=== PATIENT | male | born 1990 | race African-American/Black ===

== ENCOUNTER 2020-05-25 18:48 | Emergency (ER) | payer SELFPAY ==
[2020-05-25 18:59] VITALS: TEMP 98.1; BMI 34.2
[2020-05-25 22:43] LABS: BASO % 0.5 % (0-2.0); EOS % 4.5 % (0-4.5); HEMATOCRIT 43.4 % (35.4-49); HEMOGLOBIN 14.3 GM/dL (11.7-16.9); LYMPH % 32.9 % (8-40); MCH 28.5 pg (25.7-33.7); MEAN CELL VOLUME 86.2 fl (80-96); MEAN PLT VOLUME 9.4 fl (7.5-11.1); MONO % 8.9 % (3.8-10.2); NEUT % 53.2 % (42.8-82.8); PLATELET COUNT 267 K/MM3 (134-434); RBC 5.03 M/mm3 (4.00-5.60); RDW 14.6 % (11.9-15.9); WHITE BLOOD COUNT 10.1 K/mm3 (4.0-10.0)
[2020-05-25 22:49] LABS: INR 1.02 (0.83-1.09); PROTHROMBIN TIME (PATIENT) 12.5 SEC (9.7-13.0)
[2020-05-25 22:52] LABS: ACTIVATED PTT 31.4 SECONDS (25.2-36.5)
[2020-05-25 23:02] LABS: CHLORIDE 109 mmol/L (98-107); POTASSIUM 4.2 mmol/L (3.5-5.1); SODIUM 141 mmol/L (136-145)
[2020-05-25 23:04] LABS: ANION GAP 7 MMOL/L (8-16); BLOOD UREA NITROGEN 12.8 mg/dL (7-18); CALCIUM 8.9 mg/dL (8.5-10.1); CO2 26 mmol/L (21-32); GLUCOSE,RANDOM 96 mg/dL (74-106)
[2020-05-25 23:05] LABS: ALBUMIN 3.6 g/dl (3.4-5.0)
[2020-05-25 23:08] LABS: SGOT/AST 21 U/L (15-37); SGPT/ALT 39 U/L (13-61)
[2020-05-25 23:09] LABS: BILIRUBIN,TOTAL 0.2 mg/dL (0.2-1); TOT PROT 7.2 g/dl (6.4-8.2)
[2020-05-25 23:10] LABS: ALK PHOS 91 U/L (45-117)
[2020-05-26] MEDS ORDERED: IBUPROFEN 600 MG TABLET (FP) PO ONE ×2 (00:27→00:35)
[2020-05-26 00:47] VITALS: BP 118/59; PULSE 89
== END 2020-05-26 00:50 | disposition home or self-care (01) ==
LOC: JER 18:48
DX: R07.9 Chest pain, unspecified (principal)
CPT/HCPCS: 36415; 71046-TC-FY; 80053; 82550; 82553; 83735; 84484; 85025; 85379; 85610; 85730; 93005; 93010; 99285-25

== ENCOUNTER 2022-03-10 18:06 | Emergency (ER) | payer OTHER ==
[2022-03-10 18:12] VITALS: BP 102/67; PULSE 72; RESP 18; TEMP 98.2; BMI 41.8
== END 2022-03-10 21:28 | disposition home or self-care (01) ==
LOC: JER 18:06
DX: M54.2 Cervicalgia (principal); R10.30 Lower abdominal pain, unspecified; M79.601 Pain in right arm; M79.602 Pain in left arm; V49.40XA Driver injured in collision with unspecified motor vehicles in traffic accident, initial encounter
CPT/HCPCS: 70450-TC; 71045-TC-FY; 71101-TC-LT-FY; 72125-TC; 72170-TC-FY; 73030-TC-RT-FY; 73110-TC-LT-FY; 73130-TC-LT-FY; 74176-TC; 99285-25

== ENCOUNTER 2022-06-26 09:12 | Emergency (ER) | payer OTHER ==
[2022-06-26 09:19] VITALS: BP 117/73; PULSE 92; RESP 18; TEMP 98; BMI 34.9
[2022-06-26] MEDS ORDERED: KETOROLAC TROMETHAMINE 30 MG/1 ML VIAL IM ONE (09:34)
[2022-06-26] MEDS ORDERED: diazePAM 5 MG TABLET PO ONE (09:34)
[2022-06-26] MEDS ORDERED: LIDOCAINE 5% TOPICAL PATCH TP ONE (09:36)
[2022-06-26] MEDS ORDERED: KETOROLAC TROMETHAMINE 30 MG/1 ML VIAL ONE (09:53)
[2022-06-26] MEDS ORDERED: LIDOCAINE 5% TOPICAL PATCH ONE (09:53)
[2022-06-26] MEDS ORDERED: diazePAM 5 MG TABLET ONE (09:53)
[2022-06-26] MEDS ORDERED: LIDOCAINE PATCH REMOVAL MC ONE (22:00)
== END 2022-06-26 10:30 | disposition home or self-care (01) ==
LOC: JERFT 09:12 → JER 09:12 → JERFT 10:30
PROC: 3E0233Z Introduction of Anti-inflammatory into Muscle, Percutaneous Approach (ICD-10-PCS; principal; 2022-06-26)
DX: S13.4XXA Sprain of ligaments of cervical spine, initial encounter (principal); V43.52XA Car driver injured in collision with other type car in traffic accident, initial encounter
CPT/HCPCS: 72040-TC; 99284-25

== ENCOUNTER 2023-04-21 08:04 | Emergency (ER) | payer OTHER ==
[2023-04-21 08:31] VITALS: BP 134/69; PULSE 70; RESP 18; TEMP 98.1; BMI 36.5
== END 2023-04-21 09:39 | disposition home or self-care (01) ==
LOC: JERFT 08:04 → JER 08:04 → JERFT 09:39
DX: R21 Rash and other nonspecific skin eruption (principal); B35.4 Tinea corporis; L29.9 Pruritus, unspecified
CPT/HCPCS: 99283-25